=== PATIENT | male | born 1970 | race Caucasian/White ===

== ENCOUNTER 2016-06-26 11:59 | Emergency (ER) | payer MEDICAID ==
[~2016-06-26] VITALS: Ht 172.7 cm; Wt 73.5 kg
[2016-06-26 13:21] VITALS: BP 151/73
== END 2016-06-26 13:21 | disposition home or self-care (01) ==
LOC: ED 11:59
DX: Z43.3 Encounter for attention to colostomy (principal); E11.9 Type 2 diabetes mellitus without complications; Z79.4 Long term (current) use of insulin; Z88.8 Allergy status to other drugs, medicaments and biological substances

== ENCOUNTER 2017-08-20 23:44 | Emergency (ER) | payer OTHER ==
[~2017-08-20] VITALS: Ht 172.7 cm; Wt 80.3 kg
[2017-08-20 23:55] VITALS: Ht 172.7 cm; Wt 80.3 kg
[2017-08-21 01:30] LABS: CALCIUM 8.6 mg/dL (8.5-10.1); CARBON DIOXIDE 27.7 mmol/L (21-32); CHLORIDE SERUM 104 mmol/L (98-107); CREATININE SERUM 0.6 mg/dL (0.7-1.3); GFR1 > 60 mL/min; GLUCOSE SERUM 152 mg/dL (74-106); POTASSIUM SERUM 3.5 mmol/L (3.5-5.1); SODIUM SERUM 140 mmol/L (136-145)
[2017-08-21 01:36] LABS: ALBUMIN 2.9 g/dL (3.4-5.0); ALKALINE PHOSPHATASE 53 U/L (46-116); ALT/SGPT 11 U/L (16-63); AST/SGOT 11 U/L (15-37); BILIRUBIN TOTAL 0.42 mg/dL (0.20-1.00); CHOLESTEROL 134 mg/dL (<200); CHOLESTEROL/HDL RATIO 3.9; HDL CHOLESTEROL 34 mg/dL (40-60); LIPASE 56 IU/L (73-393); TOTAL PROTEIN, SERUM 6.3 g/dL (6.4-8.2); TRIGLYCERIDES 119 mg/dL (<150)
[2017-08-21 01:42] LABS: T3 TOTAL 1.02 ng/mL
[2017-08-21 01:57] LABS: FREE T4 1.12 ng/dL (0.76-1.46); FREE THYROXINE INDEX 2.8 ug/dL (1.4-4.5)
[2017-08-21 02:21] LABS: BASOPHIL % 0.1 % (0-2); PLATELET COUNT 313 x10^3mcL (130-400); RED CELL DISTRIBUTION WIDTH 13.6 % (11.5-14.5)
[2017-08-21 02:25] VITALS: BP 118/71
== END 2017-08-21 02:25 | disposition home or self-care (01) ==
LOC: ED 23:44
PROVIDERS: Specialist
DX: R07.89 Other chest pain (principal); L50.9 Urticaria, unspecified; E11.9 Type 2 diabetes mellitus without complications; Z88.5 Allergy status to narcotic agent
CPT/HCPCS: 83880; 84439; J1200; Q0092

== ENCOUNTER 2017-09-01 14:23 | Emergency (ER) | payer OTHER ==
[~2017-09-01] VITALS: Ht 175.3 cm; Wt 76.2 kg
[2017-09-01 14:28] VITALS: Ht 175.3 cm; Wt 76.2 kg
[2017-09-01 16:33] VITALS: BP 110/69
== END 2017-09-01 16:40 | disposition home or self-care (01) ==
LOC: ED 14:23
DX: K21.9 Gastro-esophageal reflux disease without esophagitis (principal); E11.9 Type 2 diabetes mellitus without complications; Z88.5 Allergy status to narcotic agent
CPT/HCPCS: J7030

== ENCOUNTER 2018-05-29 03:34 | Inpatient (IN) | payer OTHER ==
[~2018-05-29] VITALS: Ht 175.3 cm; Wt 86.3 kg
[2018-05-29 03:40] VITALS: Ht 175.3 cm; Wt 86.3 kg
--- NOTE | 2018-05-29 03:55 | NUR ---
PT CAME IN TODAY WITH C/O STERNAL AREA CHEST PAIN TO EPIGASTRIC ABD PAIN. PT STATES THAT HE HAS BEEN IN THE ED HERE 3 TIMES FOR THIS PAIN. PT DENIES TAKING MEDICATIONS FOR HIS PAIN. PT IS ALERT AND ABLE TO MAKE ALL NEEDS KNOWN TO STAFF.
[2018-05-29 04:30] LABS: BASOPHIL % 0.5 % (0-2); PLATELET COUNT 259 x10^3mcL (130-400); RED CELL DISTRIBUTION WIDTH 12.7 % (11.5-14.5)
[2018-05-29 04:39] LABS: CARBON DIOXIDE 29.2 mmol/L (21-32); CHLORIDE SERUM 103 mmol/L (98-107); CREATININE SERUM 0.7 mg/dL (0.7-1.3); GFR1 > 60 mL/min; GLUCOSE SERUM 284 mg/dL (74-106); POTASSIUM SERUM 4.5 mmol/L (3.5-5.1); SODIUM SERUM 137 mmol/L (136-145)
[2018-05-29 04:44] LABS: ALBUMIN 3.6 g/dL (3.4-5.0); ALKALINE PHOSPHATASE 122 U/L (46-116); ALT/SGPT 70 U/L (16-63); AST/SGOT 103 U/L (15-37); BILIRUBIN TOTAL 0.56 mg/dL (0.20-1.00); TOTAL PROTEIN, SERUM 7.2 g/dL (6.4-8.2)
[2018-05-29] MEDS ORDERED: METFORMIN HCL1000 MG (06:02)
[2018-05-29 06:43] LABS: microscopic required? NO
--- NOTE | 2018-05-29 07:10 | NUR ---
RECEIVED REPORT FROM TELLO POWELL. I WILL RESUME FURTHER CARE OF THE PATIENT.
--- NOTE | 2018-05-29 07:15 | NUR ---
PT IS AAOX4, NO DISTRESS AT THIS TIME, PT LAYING IN POSITION OF COMFORT IN BED. WILL CONT TO MONITOR.
[2018-05-29 07:42] LABS: CHOLESTEROL/HDL RATIO 4.1; PHOSPHOROUS 3.7 mg/dL (2.5-4.9)
[2018-05-29 07:44] LABS: T3 TOTAL 0.94 ng/mL
--- NOTE | 2018-05-29 07:48 | NUR ---
GAE REPORT TO LA POWELL ON TELE WHO WILL RESUME FURTHER CARE OF THIS PATIENT.
[2018-05-29 07:49] LABS: FREE T4 1.29 ng/dL (0.76-1.46); FREE THYROXINE INDEX 4.1 ug/dL (1.4-4.5); T4(THYROXINE) 10.9 ug/dL (4.7-13.3)
[2018-05-29 08:00] LABS: UA SPECIFIC GRAVITY 1.015 (1.005-1.035); urine erythrocyte NEGATIVE (NEGATIVE)
--- NOTE | 2018-05-29 08:00 | NUR ---
PT TRANSPORTED TO TELE FLOOR VIA GURNEY ON PORTABLE CM NO DISTRESS LIDA TOVAR RN RESUMED CARE OF PT
[2018-05-29 08:13] LABS: AMPHETAMINE QUAL UR NONE DETECTED (See below)
--- NOTE | 2018-05-29 08:24 | NUR ---
RECEIVED PATIENT FROM ED VIA [place]. PATIENT ABLE TO AMBULATE WELL FROM [facility] TO BED. ADMITTED FOR CP. SUDHA CHEST PAIN AT THIS TIME. TELE#[id number] APPLIED TO PATIENT READING SR HR 76. C/O BURNING PAIN IN STOMACH:05/11. BREATHING EVEN AND UNLABORED ON ROOM AIR, DENIES SOB. IV NOTED TO RAC, FLUSHING WELL, NO S/S ERYTHEMA AT SITE. PATIENT ORIENTED TO ROOM. CALL LIGHT WITHIN EASY REACH. WILL CONTINUE PLAN OF CARE.
[2018-05-29 08:38] VITALS: BP 104/74
[2018-05-29 12:05] VITALS: BP 114/73
[2018-05-29 12:06] VITALS: BP 146/71
--- NOTE | 2018-05-29 13:12 | NUR ---
PATIENT RESTING IN BED PEACEFULLY. NO C/O PAIN OR DISCOMFORT AT THIS TIME. IVF INFUSING WELL TO RAC, NO S/S ERYTHEMA. CALL LIGHT WITHIN EASY REACH. WILL CONTINUE TO MONITOR.
[2018-05-29 17:16] VITALS: BP 118/76
--- NOTE | 2018-05-29 18:06 | NUR ---
PATIENT RESTING PEACEFULLY WITH FAMILY AT THE BEDSIDE. DENIES CP AND DISCOMFORT. IVF INFUSING WELL ORDERED. CALL LIGHT WITHIN EASY REACH. 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
[2018-05-29 19:03] VITALS: BP 117/73
--- NOTE | 2018-05-29 19:28 | NUR ---
RECEIVED BEDSIDE REPORT FROM RN. TELE #24 SHOWING NSR, DENIES CP. TUNISIAN-SPEAKING. AAO. DENIES HEADACHE/DIZZINESS. LUNG SOUNDS CTAB, NO SOB, BREATHING E/U ON RA. ABD SOFT/FLAT, BS ACTIVE X4 QUADS, DENIES N/V. PULSES PALPABLE, NO EDEMA NOTED. IV SITE CDI, IVF INFUSING WELL. CALL LIGHT WITHIN REACH. WILL CONTINUE TO MONITOR.
--- NOTE | 2018-05-29 23:31 | NUR ---
PT RESTING IN BED WITH EYES CLOSED. NO S/S ACUTE DISTRESS. DENIES PAIN. BREATHING E/U. CALL LIGHT WITHIN REACH. WILL CONTINUE TO MONITOR.
[2018-05-30 05:41] VITALS: BP 108/74
--- NOTE | 2018-05-30 05:58 | NUR ---
PT HAD RESTFUL NIGHT. NO S/S ACUTE DISTRESS. DENIES CP. NO ACUTE CHANGES OVERNIGHT. ALL NEEDS MET AND ATTENDED TO. IVF INFUSING WELL, IV SITE CDI. CALL LIGHT WITHIN REACH. WILL CONTINUE TO MONITOR.
--- NOTE | 2018-05-30 07:59 | NUR ---
RECEIVED PATIENT FROM [facility]. PATIENT IN BED, NO COMPLAINTS OF PAIN. DR DIXON SPOKE W PATIENT THAT HE WILL BE LEAVING TODAY. PATIENT AWARE, CALL LIGHT IN REACH.
--- NOTE | 2018-05-30 10:13 | NUR ---
PATIENT IN BED, NO COMPLAINTS OF PAIN, NO SIGNS OF SOB. WILL AWAIT DISCHARGE ORDERS FOR PATIENT. PATIENT AWARE.
--- NOTE | 2018-05-30 11:31 | NUR ---
PATIENT IN BED RESTING, NO COMPLAINTS OF PAIN, SOB. CALL LIGHT IN REACH.
[2018-05-30] MEDS ORDERED: PRI20 PO (12:08)
[2018-05-30 15:31] VITALS: BP 108/74
--- NOTE | 2018-05-30 15:58 | NUR ---
PATIENT IN BED RESTING. NO COMPLAINTS OF PAIN. DISCHARGE INSTRUCTIONS GIVEN TO PATIENT, PATIENT VERBALIZES UNDERSTANDING. FURTHER QUESTIONS ANSWERED. TELEMETRY RETURNED TO [facility]. IV CATHETER REMOVED, CATHETER INTACT. ESCORTED DOWNSTAIRS WITH MEENA RUIZ.
== END 2018-05-30 16:07 | disposition home or self-care (01) | DRG 243 ==
LOC: ED 03:34 → DU 06:07
PROVIDERS: Emergency Medicine; ADMIT Internal Medicine
DX: K21.9 Gastro-esophageal reflux disease without esophagitis (principal); E11.65 Type 2 diabetes mellitus with hyperglycemia; E78.5 Hyperlipidemia, unspecified; R74.0 Nonspecific elevation of levels of transaminase and lactic acid dehydrogenase [LDH]; Z68.27 Body mass index [BMI] 27.0-27.9, adult; Z79.84 Long term (current) use of oral hypoglycemic drugs
CPT/HCPCS: 82962; 83880; 84439; 85378; J7030; Q0092